=== PATIENT | male | born 1960 | race Caucasian/White ===

== ENCOUNTER 2016-10-21 22:04 | Emergency (ER) | payer OTHER ==
[~2016-10-21] VITALS: Ht 188 cm; Wt 113.7 kg
[2016-10-21 22:39] LABS: HEMATOCRIT 47.1 % (38.0-50.0); MCH 30.9 PG (29.0-34.0); MCHC 33.5 G/DL (30.0-36.0); MCV 92.2 FL (86-99); MEAN PLAT.VOLUME 9.7 uM^3 (9.0-12.4); PLATELET COUNT 313 K/uL (156-360); RBC DIS.WIDTH-CV 12.7 % (11.8-14.6); RBC DIS.WIDTH-SD 43.2 % (39-53); RED BLOOD COUNT 5.11 M/uL (4.00-5.50); WHITE BLOOD COUNT 11.6 K/uL (4.1-10.2)
[2016-10-21 22:49] LABS: CHLORIDE 102 mEq/L (99-109); POTASSIUM 4.4 mEq/L (3.7-5.4); SODIUM 139 mEq/L (136-147)
[2016-10-21 22:51] LABS: GLUCOSE 124 mg/dL (70-99)
[2016-10-21 22:52] LABS: ANION GAP 10 MEQ/L (2-14)
[2016-10-21 22:55] LABS: GFR ESTIMATE (CALCULATED) > 59 mL/min/
[2016-10-21 22:56] LABS: UREA NITROGEN (BUN) 15 mg/dL (9-23)
[2016-10-21 23:03] LABS: TROP-I INTERPRETATION NEGATIVE; TROPONIN-I < 0.01 ng/mL (0.0-0.30)
[2016-10-21 23:45] LABS: INTER. NORMALIZED RATIO 1.6; PTT 36.7 (25-32)
[2016-10-22] MEDS ORDERED: AUGMENTIN875 MG PO (00:17)
[2016-10-22 00:46] VITALS: BP 142/90
[2016-10-23] MEDS ORDERED: ELIQUIS5 MG PO ×2 (14:22→16:23)
[2016-10-23] MEDS ORDERED: PANTOPRAZOLE SO20 MG PO (14:23)
[2016-10-23] MEDS ORDERED: ENDOCET 5-3251 EACH PO (14:24)
[2016-10-23] MEDS ORDERED: HYDROCODON-ACE1 EAC7 PO (16:21)
[2016-10-23] MEDS ORDERED: TESTOSTERONE CREAM TP (16:24)
== END 2016-10-22 00:47 | disposition home or self-care (01) ==
LOC: EME 22:04
PROVIDERS: Emergency Medicine
DX: J01.90 Acute sinusitis, unspecified (principal); R04.0 Epistaxis; Z86.718 Personal history of other venous thrombosis and embolism; Z86.711 Personal history of pulmonary embolism; Z79.01 Long term (current) use of anticoagulants; Z91.040 Latex allergy status; Z88.2 Allergy status to sulfonamides
CPT/HCPCS: 71020; 80048; 83605; 84484; 85027; 85610; 85730; 86850; 86900; 86901; 87040; 93005; 99281; 99284; J7030

== ENCOUNTER 2016-10-23 11:48 | Inpatient (IN) | payer OTHER ==
[~2016-10-23] VITALS: Ht 188 cm; Wt 109.5 kg
[~2016-10-23 11:48] MED LIST: AUGMENTIN875 MG PO
[2016-10-23 13:55] LABS: HEMATOCRIT 46.4 % (38.0-50.0); MCH 30.8 PG (29.0-34.0); MCHC 33.6 G/DL (30.0-36.0); MCV 91.7 FL (86-99); PLATELET COUNT 394 K/uL (156-360); RBC DIS.WIDTH-CV 12.5 % (11.8-14.6); RBC DIS.WIDTH-SD 42.2 % (39-53); RED BLOOD COUNT 5.06 M/uL (4.00-5.50); WHITE BLOOD COUNT 10.9 K/uL (4.1-10.2)
[2016-10-23] MEDS ORDERED: ELIQUIS5 MG PO ×2 (14:22→16:23)
[2016-10-23] MEDS ORDERED: PANTOPRAZOLE SO20 MG PO (14:23)
[2016-10-23] MEDS ORDERED: ENDOCET 5-3251 EACH PO (14:24)
[2016-10-23 14:38] LABS: CHLORIDE 100 mEq/L (99-109); POTASSIUM 4.3 mEq/L (3.7-5.4); SODIUM 135 mEq/L (136-147)
[2016-10-23 14:39] LABS: GLUCOSE 103 mg/dL (70-99)
[2016-10-23 14:41] LABS: ANION GAP 11 MEQ/L (2-14)
[2016-10-23 14:43] LABS: GFR ESTIMATE (CALCULATED) > 59 mL/min/
[2016-10-23 14:44] LABS: UREA NITROGEN (BUN) 11 mg/dL (9-23)
[2016-10-23] MEDS ORDERED: HYDROCODON-ACE1 EAC7 PO (16:21)
[2016-10-23] MEDS ORDERED: TESTOSTERONE CREAM TP (16:24)
[2016-10-23 18:35] LABS: INTER. NORMALIZED RATIO 1.4; PROTHROMBIN TIME 14.1 (9.2-11.2); PTT 36.3 (25-32)
[2016-10-23 20:43] VITALS: BP 159/75
[2016-10-24] VITALS (7 sets, daily range): BP systolic 98–142; BP diastolic 55–87
[2016-10-24 07:26] LABS: HEMATOCRIT 40.4 % (38.0-50.0); MCH 30.4 PG (29.0-34.0); MCHC 33.4 G/DL (30.0-36.0); MEAN PLAT.VOLUME 10.3 uM^3 (9.0-12.4); PLATELET COUNT 366 K/uL (156-360); PTT 37.6 (25-32); RBC DIS.WIDTH-CV 12.6 % (11.8-14.6); RBC DIS.WIDTH-SD 41.8 % (39-53); RED BLOOD COUNT 4.44 M/uL (4.00-5.50); WHITE BLOOD COUNT 10.1 K/uL (4.1-10.2)
[2016-10-24 07:28] LABS: ALKALINE PHOSPHATASE 55 IU/L (3-129); ANION GAP 10 MEQ/L (2-14); CHLORIDE 99 MEQ/L (99-109); GFR ESTIMATE (CALCULATED) > 59 mL/min/; GLUCOSE 112 mg/dL (70-99); POTASSIUM 4.3 MEQ/L (3.7-5.4); SAMPLE HEMOLYSIS CHECK 0; SAMPLE ICTERIC CHECK 0; SAMPLE LIPEMIA CHECK 0; SODIUM 137 MEQ/L (136-147); TOTAL BILIRUBIN 0.9 MG/DL (0.0-1.0); UREA NITROGEN (BUN) 12 mg/dL (9-23)
[2016-10-24 12:47] LABS: INTER. NORMALIZED RATIO 1.4
[2016-10-25 03:20] VITALS: BP 112/69
[2016-10-25 07:45] VITALS: BP 118/86
[2016-10-25 09:37] LABS: INTER. NORMALIZED RATIO 1.5; PROTHROMBIN TIME 15.1 (9.2-11.2); PTT 53.3 (25-32)
[2016-10-25 09:58] LABS: HEMATOCRIT 39.4 % (38.0-50.0); MCH 30.9 PG (29.0-34.0); MCHC 33.8 G/DL (30.0-36.0); MCV 91.6 FL (86-99); MEAN PLAT.VOLUME 10.3 uM^3 (9.0-12.4); PLATELET COUNT 411 K/uL (156-360); RBC DIS.WIDTH-CV 12.6 % (11.8-14.6); RBC DIS.WIDTH-SD 42.3 % (39-53)
[2016-10-25] MEDS ORDERED: LOVENOX100 MG/1 M SC (11:50)
[2016-10-25] MEDS ORDERED: CLINDAMYCIN HC300 MG PO (13:10)
[2016-10-25] MEDS ORDERED: WARFARIN SODIUM5 MG PO (13:10)
[2016-10-25] MEDS ORDERED: ACIDOPHILUS LA1 EACH PO (13:10)
[2016-10-25 17:17] VITALS: BP 135/71
== END 2016-10-25 18:27 | disposition home or self-care (01) | DRG 602 ==
LOC: EME 11:48 → EDOF 16:53 → 5EAST 16:53
PROVIDERS: Emergency Medicine; Family Medicine; Hospitalist; Internal Medicine
PROC: 095K4ZZ Destruction of Nasal Mucosa and Soft Tissue, Percutaneous Endoscopic Approach (ICD-10-PCS; principal; 2016-10-24)
DX: L03.211 Cellulitis of face (principal); I26.99 Other pulmonary embolism without acute cor pulmonale; I82.492 Acute embolism and thrombosis of other specified deep vein of left lower extremity; R04.0 Epistaxis; J32.9 Chronic sinusitis, unspecified; Z86.711 Personal history of pulmonary embolism; Z86.718 Personal history of other venous thrombosis and embolism; Z79.01 Long term (current) use of anticoagulants; D72.829 Elevated white blood cell count, unspecified
CPT/HCPCS: 70487; 80048; 80053; 83605; 85027; 85610; 85730; 87040; 99281; 99284; J2270; J2543; J7050